=== PATIENT | male | born 1995 | race Asian ===

== ENCOUNTER 2017-04-25 09:00 | Emergency (ER) | payer OTHER ==
[2017-04-25 09:04] VITALS: BP 139/84; PULSE 70; RESP 16; TEMP 97.7; O2SAT 97
--- NOTE | 2017-04-25 09:21 | EDPHY ---
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 No loss of consciousness. No nausea or vomiting. No amnesia. No headache. He does have localized pain at the impact point. No depression. No fall. No midline C-spine pain. No peripheral paresthesia, weakness, numbness. No visual disturbance. No ocular injury. PRIMARY CARE PROVIDER: worker's compensation REVIEW OF SYSTEMS: A ten point review of systems was performed and is negative with the exception of the items mentioned in the HPI PAST MEDICAL/SURGICAL HISTORY: no anticoagulant use, no relevant medical/ surgical history SOCIAL HISTORY: denies alcohol use at time of incident PHYSICAL EXAM 1) GENERAL: Well-developed, well-nourished, alert and oriented. Appears to be in no acute distress. Answering questions appropriately. 2) HEAD: Normocephalic, left frontal erythema with no depression no hematoma 3) HEENT: Pupils equal, round, reactive to light bilaterally. Negative Horners. Nasopharynx, oropharynx, clear. No deformity or angulation of nose. No septal hematoma. No rhinorrhea. No oral trauma. Ears bilaterally with normal tympanic membranes. No hemotympanum. No fluid or blood in the external auditory canal. No raccoon eyes. No Doshi sign. . 4) NECK: No cervical collar is on. Posterior cervical spine is nontender, no stepoff, no effusion. Full range of motion which does not elicit any midline cervical spine pain, no posterior midline tenderness, no step-off. 5) LUNGS: Clear to auscultation bilaterally, no wheezes, no rhonchi, no retractions. No obvious signs of trauma. No chest wall pain. No flaring, no grunting. Moving symmetrically. No crepitus. 6) HEART: Regular rate and rhythm, 7) ABDOMEN: No guarding, no rebound, no focal tenderness, no peritoneal signs, no signs of trauma, no ecchymosis 8) MUSCULOSKELETAL: Moving all extremities, no focal areas of tenderness, no obvious trauma. 9) BACK: No midline vertebral tenderness, no fluctuance, no step-off, no obvious trauma, no visual or palpable abnormality. 10) SKIN: No laceration. No abrasion 11) NEURO: Awake, alert, and oriented to person, place and time. Answers questions appropriately. There were no obvious focal neurologic abnormalities. No cerebellar dysfunction. Normal steady gait. Upper and lower extremities bilaterally with strength 5 / 5, reflexes 2+. DIFFERENTIAL DIAGNOSIS: [ Not necessarily in any particular order, my differential diagnosis includes, but is not limited to, concussion, skull fracture, intraparenchymal contusion, subarachnoid, subdural and epidural hematoma. The patient understands that this diagnosis is provisional and can never be 100% accurate. - Personal History Current Tetanus Diphtheria and Acellular Pertussis (TDAP): Yes - Medical/Surgical History Hx Asthma: No Hx Chronic Respiratory Disease: No Hx Diabetes: No Hx Cardiac Disease: No Hx Renal Disease: No Hx Cirrhosis: No Hx Alcoholism: No Hx HIV/AIDS: No Hx Splenectomy or Spleen Trauma: No Other PMH: denies - Social History Smoking Status: Never smoked Constitutional: Initial Vital Signs Temperature (C) 36.5 C 04/25/17 09:01 Heart Rate 70 04/25/17 09:01 Respiratory Rate 16 04/25/17 09:01 Blood Pressure 139/84 H 04/25/17 09:01 O2 Sat (%) 97 04/25/17 09:01 O2 Delivery Mode Room Air Allergies/Adverse Reactions: shellfish derived Allergy (Verified 04/25/17 09:04) Home Medications: Medication Instructions Recorded NO HOME MEDS 12/13/09 EPINEPHRINE [EPIPEN] 0.3 mg IM ONCE #2 syr 07/09/16 Famotidine [Pepcid 20 MG (*)] 20 mg PO BID #6 tab 07/09/16 diphenhydrAMINE [Benadryl 25 MG 25 mg PO BID #6 tab 07/09/16 (*)] predniSONE 50 mg PO DAILY #3 tablet 07/09/16 Medical Decision Making ED Course/Re-evaluation: This patient appears well, has no headache, no vomiting, his age is not greater than 65 years old, he is not anticoagulated, he had no loss of consciousness, no alcohol use, no amnesia, no fall from height, no seizure, no nausea or vomiting. For these reasons I do not think that the benefits of CT imaging outweigh the risks as I have a low pretest index suspicion for skull fracture and/or intracranial hemorrhage. However have offered this and he is in agreement he does not feel is indicated. I have provided my usual and customary head injury and precautions instructions including 2nd impact syndrome. He feels comfortable being discharged. All questions and concerns have been addressed by myself.Care and management in consultation with secondary supervising physician Dr Mar . Departure - Departure Disposition: Home, Routine, Self-Care Clinical Impression: Frontal head injury Qualifiers: Encounter type: initial encounter Qualified Code(s): S09.90XA - Unspecified injury of head, initial encounter Condition: Good Instructions: Head Injury (ED) Additional Instructions: ALTHOUGH THERE IS NO EVIDENCE OF SERIOUS HEAD INJURY AT THIS TIME, DELAYED SIGNS CAN APPEAR 24 TO 48 HOURS AFTER INJURY. WE RECOMMEND THAT YOU DESIGNATE A FRIEND OR FAMILY MEMBER TO OBSERVE YOU OVER THE NEXT FEW DAYS TO ENSURE THAT YOUR CONDITION IS PROGRESSING NORMALLY. PLEASE RETURN TO THE EMERGENCY DEPARTMENT (ED) IMMEDIATELY IF YOU HAVE INCREASED HEADACHE, PERSISTENT HEADACHE , VOMITING, WEAKNESS, CONFUSION OR VISUAL PROBLEMS. WE RECOMMEND THAT YOU DO NOT RESUME CONTACT SPORTS OR ACTIVITIES THAT TAKE COORDINATION OR BALANCE SUCH SKIING OR RIDING A BICYCLE UNTIL CLEARED TO DO SO BY YOUR DOCTOR OR BY A NEUROLOGIST. Referrals: Elen Christopher MD [Primary Care Provider] - 1 day without fail Stand Alone Forms: Work Comp Follow Up
== END 2017-04-25 09:28 | disposition home or self-care (01) ==
DX: S09.90XA Unspecified injury of head, initial encounter (principal); W22.8XXA Striking against or struck by other objects, initial encounter; Y92.69 Other specified industrial and construction area as the place of occurrence of the external cause; Y99.0 Civilian activity done for income or pay